=== PATIENT | female | born 1960 ===

== ENCOUNTER 2022-05-28 07:00 | Inpatient (IN) | payer OTHER ==
[~2022-05-28] VITALS: Ht 172.7 cm; Wt 78.0 kg
[2022-05-28] MEDS ORDERED: XARELTO PO (08:11)
[2022-05-28] MEDS ORDERED: ATIVAN0.5 M1 PO (08:12)
[2022-05-28] MEDS ORDERED: CRESTOR10 MG PO (08:12)
[2022-05-28] MEDS ORDERED: ESCITA PO (08:13)
[2022-05-28] MEDS ORDERED: FENO PO (08:14)
[2022-05-28] MEDS ORDERED: ECOTRIN81 MG PO (08:14)
[2022-05-28] MEDS ORDERED: GLUMETZA500 MG PO (08:14)
[2022-06-03] MEDS ORDERED: XARELTO2.5 MG PO (08:06)
[2022-06-03] MEDS ORDERED: ATIVAN1 M1 PO (08:07)
[2022-06-03] MEDS ORDERED: ESCITALOPRAM OX10 MG PO (08:08)
[2022-06-03] MEDS ORDERED: FENOFIBRATE40 MG (08:09)
[2022-06-05] MEDS ORDERED: GABAPENTIN100 MG PO (11:44)
[2022-06-05] MEDS ORDERED: NORFLEX100MG PO (11:44)
[2022-06-05] MEDS ORDERED: OXYC1TAB9 PO (11:45)
== END 2022-06-05 13:15 | disposition home or self-care (01) | DRG 470 ==
LOC: O/R 06-03 05:21 → SURG 06-03 07:00 → SURH 06-03 10:26 → SURG 06-03 10:48
PROVIDERS: ADMIT Orthopaedic Surgery; ATTEND Orthopaedic Surgery
PROC: 0SRC0JZ Replacement of Right Knee Joint with Synthetic Substitute, Open Approach (ICD-10-PCS; principal; 2022-06-03 14:00)
DX: M17.11 Unilateral primary osteoarthritis, right knee (principal); D62 Acute posthemorrhagic anemia; M85.661 Other cyst of bone, right lower leg; I10 Essential (primary) hypertension; Z96.651 Presence of right artificial knee joint; Z20.822 Contact with and (suspected) exposure to COVID-19